=== PATIENT | male | born 1960 | race Hispanic/Latino ===

== ENCOUNTER → 2018-11-07 | Day surgery (SDC) | payer OTHER ==
[~2018-11-07] MED LIST: ASPIRIN81 MG PO; FENTANYL CITRATE/PF 100MCG/2 ML INJ ONE; HYOSCYAMINE 0.125 MG TAB ONE; LIPITOR20 MG PO; LISINOPRIL10 MG PO; METFORMIN HCL500 MG PO; MIDAZOLAM HCL 2 MG/2 ML VIAL ONE; PHENYLEPHRINE HCL 1% 10 MG/ML VIAL ONE; PROPOFOL IV EMULSION 10 MG/ML 50 ML VIAL ONE; SIMETHICONE 40 MG/0.6 ML BTL ONE
[2018-11-07 09:25] VITALS: BP 112/68
--- NOTE | 2018-11-07 16:57 | Operative Report ---
DATE OF PROCEDURE: 11/07/2018 SURGEON: Moises Paris MD PROCEDURE: Colonoscopy with biopsy. REFERRING: Emily Hodges MD. INDICATION FOR COLONOSCOPY: Surveillance colonoscopy, personal history of colon polyps. MEDICATIONS: The patient was done under MAC. Please see anesthesiologist's note. PROCEDURE IN DETAIL: With the patient in left lateral decubitus position, the flexible fiberoptic Olympus colonoscope was inserted into the rectum with ease and advanced all the way to the cecum. The scope was then withdrawn slowly. Mucosa overlying the cecum, ascending colon, transverse colon, descending colon appeared to be within normal limits. Some patchy areas of erythema and low-grade to moderate edema were noted in the sigmoid colon and biopsies were obtained. The rectum appeared to be within normal limits. The scope was then retroflexed into the distal rectum and small internal hemorrhoids were noted none of which was actively bleeding. The scope was then straightened out, it was subsequently withdrawn. The patient tolerated the procedure well. IMPRESSION: 1. Mild patchy segmental colitis, sigmoid colon. 2. Internal hemorrhoids none actively bleeding. PLAN: Follow up histology. Initiate high-fiber, low-fat diet. Initiate high-fiber supplement. Start Visbiome 1 p.o. b.i.d. The patient might benefit from a followup colonoscopy in 5 years. Moises Paris MD [facility] [place] /[id number] cc: MD Emily Mendoza MD
== END | disposition home or self-care (01) ==
LOC: OR 06:08
PROVIDERS: ATTEND Internal Medicine Gastroenterology
DX: K64.8 Other hemorrhoids (principal); K63.5 Polyp of colon; K50.10 Crohn's disease of large intestine without complications; I10 Essential (primary) hypertension; Z88.2 Allergy status to sulfonamides; Z01.810 Encounter for preprocedural cardiovascular examination
CPT/HCPCS: 36415; 45380; 82948; 93005; J2250; J2370; J2704; J3010; 45378